=== PATIENT | male | born 1935 | race African-American/Black ===

== ENCOUNTER 2024-07-07 14:58 | Inpatient (IN) | payer MEDICARE, OTHER ==
[~2024-07-07] VITALS: Ht 330.2 cm; Wt 62.6 kg
[2024-07-07 15:06] VITALS: O2SAT 100
[2024-07-07 17:33] LABS: HEMATOCRIT. 33.5 % (42.0-52.0); HEMOGLOBIN. 10.2 g/dL (14.0-18.0); MEAN CORPUSCULAR HEMOGLOBIN 23.7 pg (28.0-32.0); MEAN CORPUSCULAR HGB CONC 30.3 g/dL (31.0-37.0); MEAN PLATELET VOLUME 8.6 fl (7.4-10.4); PLATELET 96 x1000/uL (130-400); RED CELL DISTRIBUTION WIDTH 19.4 % (11.6-14.6); WHITE BLOOD COUNT 27.3 x1000/uL (4.5-11.0)
[2024-07-07 17:40] LABS: DIFFERENTIAL COMMENT 1
[2024-07-07 18:30] LABS: ANISOCYTOSIS 1+; HYPOCHROMASIA 1+; MICROCYTOSIS 1+; PLATELET ESTIMATE DECREASED
[2024-07-07] MEDS: PIPERACILLIN/TAZO 3.375G/50ML 50 ML IV ONE (18:45)
[2024-07-07] MEDS: SODIUM CHLORIDE 0.9% 1000ML BAG (SEPSIS BOLUS) IV ONE (18:45)
[2024-07-07] MEDS: VANCOMYCIN 1G PREMIX 200 ML IV ONE (19:30)
[2024-07-07 19:33] LABS: CARBON DIOXIDE 23 mEq/L (21-32)
[2024-07-07 19:34] LABS: CALCIUM 8.2 mg/dL (8.7-10.4)
[2024-07-07 19:35] LABS: CHLORIDE 102 mEq/L (98-107); POTASSIUM 4.6 mEq/L (3.5-5.1); SODIUM 134 mEq/L (136-145)
[2024-07-07 19:38] LABS: CREATININE 0.9 mg/dL (0.6-1.3); GLUCOSE 179 mg/dL (70-105); UREA NITROGEN BLOOD 39 mg/dL (9-23)
[2024-07-07 19:39] LABS: TROPONIN I HIGH SENSITIVITY 11 ng/L (3.0-53)
[2024-07-07 19:40] LABS: ALANINE AMINOTRANSFERASE 158 IU/L (10-49); ALBUMIN 2.8 g/dL (3.2-4.8); ASPARTATE AMINOTRANSFERASE 310 IU/L (<34)
[2024-07-07 19:41] LABS: BILIRUBIN TOTAL 1.3 mg/dL (0.1-1.0); PROTEIN TOTAL 6.2 g/dL (6.0-8.3)
[2024-07-07 19:42] LABS: INR 1.5; PROTHROMBIN TIME 16.7 sec (9.6-11.0)
[2024-07-07 19:45] LABS: LACTIC ACID 4.5 mmol/L (0.4-2.0)
[2024-07-07] MEDS ORDERED: IPRATROPIUM/ALBUTEROL 0.5-3(2.5)MG/3ML NEB HHN PRN (21:30)
[2024-07-07] MEDS ORDERED: ACETAMINOPHEN 325MG TABLET PO PRN (21:30)
[2024-07-07] MEDS ORDERED: ENOXAPARIN 40MG/0.4ML SYR SUBCUT SCH (21:30)
[2024-07-07] MEDS ORDERED: ONDANSETRON HCL 4MG/2ML INJ IV PRN (21:30)
[2024-07-07] MEDS: DEXT 5%/0.45% NACL KCL 20MEQ/L 1,000 ML IV SCH (22:00)
[2024-07-07] MEDS: PANTOPRAZOLE SODIUM 40 MG/VIAL IV SCH (22:00)
[2024-07-07] MEDS: MVI, ADULT NO.1 10 ML, FOLIC ACID 1 MG, THIAMINE HCL 100 MG in SODIUM CHLORIDE 0.9% 1,0... IV ONE (22:00)
[2024-07-08] MEDS: ENOXAPARIN 30MG/0.3ML SYR SUBCUT SCH (00:27)
[2024-07-08] MEDS: PIPERACILLIN/TAZO 3.375G/50ML 50 ML IV SCH (06:28)
[2024-07-08 09:48] LABS: HEMATOCRIT. 33.6 % (42.0-52.0); HEMOGLOBIN. 9.9 g/dL (14.0-18.0); MEAN CORPUSCULAR HEMOGLOBIN 23.9 pg (28.0-32.0); MEAN CORPUSCULAR HGB CONC 29.5 g/dL (31.0-37.0); MEAN CORPUSCULAR VOLUME 81.1 fL (80.0-94.0); MEAN PLATELET VOLUME 8.9 fl (7.4-10.4); PLATELET 82 x1000/uL (130-400); RED BLOOD CELL COUNT 4.14 mill/uL (4.7-6.1); RED CELL DISTRIBUTION WIDTH 19.9 % (11.6-14.6); WHITE BLOOD COUNT 29.1 x1000/uL (4.5-11.0)
[2024-07-08 09:49] LABS: DIFFERENTIAL COMMENT 1
[2024-07-08 10:34] LABS: LACTIC ACID 4.1 mmol/L (0.4-2.0)
[2024-07-08] MEDS ORDERED: TOPUD PO (11:09)
[2024-07-08] MEDS ORDERED: INSU100I28 SQ (11:22)
[2024-07-08] MEDS ORDERED: DAKIHS MC (11:22)
[2024-07-08] MEDS ORDERED: ATOR10TA MT (11:29)
[2024-07-08] MEDS ORDERED: CLON0.1T PO ×2 (11:29)
[2024-07-08] MEDS ORDERED: ONDA-239 PO (11:29)
[2024-07-08] MEDS ORDERED: COLL30OI TP (11:29)
[2024-07-08] MEDS ORDERED: MELO-104 MT (11:29)
[2024-07-08] MEDS ORDERED: DULO30CA2 MT (11:29)
[2024-07-08 11:43] VITALS: BP 163/85; PULSE 61; RESP 17; TEMP 35.78064; O2SAT 95
[2024-07-08 12:00] VITALS: BP 159/82; PULSE 91; RESP 18; TEMP 36.14
[2024-07-08] MEDS ORDERED: VANCOMYCIN 1G PREMIX 200 ML IV SCH (12:00)
[2024-07-08 13:59] LABS: TROPONIN I HIGH SENSITIVITY 8 ng/L (3.0-53)
[2024-07-08] MEDS ORDERED: AMMO140C2 TP (14:20)
[2024-07-08] MEDS ORDERED: DEXTL MT (14:20)
[2024-07-08 14:37] LABS: CARBON DIOXIDE 23 mEq/L (21-32); CHLORIDE 106 mEq/L (98-107); POTASSIUM 5.2 mEq/L (3.5-5.1); SODIUM 135 mEq/L (136-145)
[2024-07-08 14:38] LABS: CALCIUM 7.5 mg/dL (8.7-10.4)
[2024-07-08 14:42] LABS: CREATININE 0.8 mg/dL (0.6-1.3)
[2024-07-08 14:43] LABS: GLUCOSE 124 mg/dL (70-105); UREA NITROGEN BLOOD 43 mg/dL (9-23)
[2024-07-08 14:44] LABS: ALANINE AMINOTRANSFERASE 104 IU/L (10-49)
[2024-07-08 14:45] LABS: ALBUMIN 2.4 g/dL (3.2-4.8); ASPARTATE AMINOTRANSFERASE 106 IU/L (<34); BILIRUBIN TOTAL 1.2 mg/dL (0.1-1.0); PROTEIN TOTAL 5.1 g/dL (6.0-8.3)
[2024-07-08] MEDS: DEXT 5%/0.45% NACL 1000ML 1,000 ML IV SCH (15:44)
[2024-07-08 15:50] VITALS: BP 166/80; PULSE 89; RESP 19; TEMP 36.00288; O2SAT 96
[2024-07-08 15:59] LABS: ANISOCYTOSIS 2+; PLATELET ESTIMATE DECREASED
[2024-07-08] MEDS: BLOOD SUGAR DIAGNOSTIC STRIP TEST SCH (16:20)
[2024-07-08] MEDS: INSULIN LISPRO 100 UNITS/ML SUBCUT SCH (16:20)
[2024-07-08] MEDS: VANCOMYCIN 1G PREMIX 200 ML IV SCH (16:43)
[2024-07-08 16:45] VITALS: BP 155/88
[2024-07-08] MEDS ORDERED: CLONIDINE 0.1MG TABLET PO PRN (16:45)
[2024-07-08] MEDS: OLANZAPINE 10MG TABLET PO SCH (17:54)
[2024-07-08 20:00] VITALS: BP 108/50; PULSE 87; RESP 18; TEMP 36.3918; O2SAT 99
[2024-07-09 04:00] VITALS: BP 103/63; PULSE 68; RESP 18; TEMP 36.89184; O2SAT 98
[2024-07-09] MEDS: DEXTROSE 50% WATER 50ML SYRINGE IV PRN (05:52)
[2024-07-09 08:00] VITALS: BP 105/53; PULSE 81; RESP 20; TEMP 36.114; O2SAT 95
[2024-07-09] MEDS: SODIUM HYPOCHLORITE SOLUTION (0.5%)FULL STRENGTH TOP SCH (09:29)
[2024-07-09 12:00] VITALS: BP 148/82; PULSE 91; RESP 18; TEMP 36.114; O2SAT 95
[2024-07-09 13:19] LABS: HEMATOCRIT. 30.4 % (42.0-52.0); HEMOGLOBIN. 9.2 g/dL (14.0-18.0); MEAN CORPUSCULAR HEMOGLOBIN 23.2 pg (28.0-32.0); MEAN CORPUSCULAR HGB CONC 30.3 g/dL (31.0-37.0); MEAN CORPUSCULAR VOLUME 76.6 fL (80.0-94.0); MEAN PLATELET VOLUME 9.4 fl (7.4-10.4); PLATELET 62 x1000/uL (130-400); RED BLOOD CELL COUNT 3.97 mill/uL (4.7-6.1); RED CELL DISTRIBUTION WIDTH 19.5 % (11.6-14.6); WHITE BLOOD COUNT 28.7 x1000/uL (4.5-11.0)
[2024-07-09 13:30] LABS: CHLORIDE 105 mEq/L (98-107); POTASSIUM 4.6 mEq/L (3.5-5.1); SODIUM 136 mEq/L (136-145)
[2024-07-09 13:31] LABS: CARBON DIOXIDE 23 mEq/L (21-32); DIFFERENTIAL COMMENT 1
[2024-07-09 13:36] LABS: CREATININE 0.9 mg/dL (0.6-1.3)
[2024-07-09 13:37] LABS: GLUCOSE 171 mg/dL (70-105); UREA NITROGEN BLOOD 35 mg/dL (9-23)
[2024-07-09 14:05] LABS: HEPATITIS B SURFACE ANTIGEN NEGATIVE (Negative)
[2024-07-09 14:09] LABS: ANISOCYTOSIS 1+; MICROCYTOSIS 2+; PLATELET ESTIMATE MARKEDLY DECREASED
[2024-07-09 14:25] LABS: HEPATITIS A AB IGM NEGATIVE (Negative)
[2024-07-09 14:26] LABS: HEPATITIS B CORE AB IGM NEGATIVE (Negative); HEPATITIS C AB NON REACTIVE (Neg) (Negative)
[2024-07-09 16:00] VITALS: BP 150/79; PULSE 77; RESP 18; TEMP 36.16956; O2SAT 95
[2024-07-09 20:00] VITALS: BP 100/65; PULSE 78; RESP 19; TEMP 36.22512; O2SAT 97
[2024-07-10 00:30] VITALS: BP 109/68; PULSE 80; RESP 17; TEMP 36.28068; O2SAT 94
[2024-07-10 04:00] VITALS: BP 100/57; PULSE 75; RESP 17; TEMP 36.44736; O2SAT 95
[2024-07-10 06:51] LABS: HEMATOCRIT. 28.6 % (42.0-52.0); HEMOGLOBIN. 8.9 g/dL (14.0-18.0); MEAN CORPUSCULAR HEMOGLOBIN 23.5 pg (28.0-32.0); MEAN CORPUSCULAR HGB CONC 31.1 g/dL (31.0-37.0); MEAN CORPUSCULAR VOLUME 75.4 fL (80.0-94.0); MEAN PLATELET VOLUME 9.4 fl (7.4-10.4); RED CELL DISTRIBUTION WIDTH 19.5 % (11.6-14.6); WHITE BLOOD COUNT 24.4 x1000/uL (4.5-11.0)
[2024-07-10] MEDS: MEROPENEM 1G/100ML 100 ML IV SCH ×2 (06:52→16:06)
[2024-07-10 07:00] LABS: CHLORIDE 105 mEq/L (98-107); POTASSIUM 4.3 mEq/L (3.5-5.1); SODIUM 135 mEq/L (136-145)
[2024-07-10 07:01] LABS: CALCIUM 7.8 mg/dL (8.7-10.4); CARBON DIOXIDE 22 mEq/L (21-32)
[2024-07-10 07:07] LABS: GLUCOSE 276 mg/dL (70-105); UREA NITROGEN BLOOD 35 mg/dL (9-23)
[2024-07-10 07:08] LABS: CREATINE KINASE 53 IU/L (46-171)
[2024-07-10] MEDS ORDERED: LIDOCAINE HCL 1% 10 MG/ML 10ML VIAL ONE (07:24)
[2024-07-10 08:00] VITALS: BP 125/110; PULSE 89; RESP 17; TEMP 36.55848; O2SAT 96
[2024-07-10 08:26] LABS: DIFFERENTIAL COMMENT 1; PLATELET 45 x1000/uL (130-400)
[2024-07-10 08:29] LABS: ANISOCYTOSIS 1+; MICROCYTOSIS 2+; PLATELET ESTIMATE MARKEDLY DECREASED
[2024-07-10 12:00] VITALS: BP 108/67; PULSE 84; RESP 21; TEMP 37.16964; O2SAT 95
[2024-07-10 16:00] VITALS: BP 93/52; PULSE 62; RESP 17; TEMP 36.00288; O2SAT 98
[2024-07-10 20:00] VITALS: BP 93/51; PULSE 80; RESP 18; TEMP 36.3918; O2SAT 98
[2024-07-11] VITALS: BP 111/63; PULSE 69; RESP 18; TEMP 36.3918; O2SAT 100
[2024-07-11 04:00] VITALS: BP 108/61; PULSE 86; RESP 18; TEMP 36.16956; O2SAT 100
[2024-07-11 06:05] LABS: CHLORIDE 106 mEq/L (98-107); POTASSIUM 4.6 mEq/L (3.5-5.1); SODIUM 137 mEq/L (136-145)
[2024-07-11 06:06] LABS: CARBON DIOXIDE 24 mEq/L (21-32)
[2024-07-11 06:11] LABS: GLUCOSE 132 mg/dL (70-105); UREA NITROGEN BLOOD 38 mg/dL (9-23)
[2024-07-11 06:13] LABS: ALANINE AMINOTRANSFERASE 59 IU/L (10-49); ALBUMIN 2.4 g/dL (3.2-4.8); ASPARTATE AMINOTRANSFERASE 52 IU/L (<34); BILIRUBIN TOTAL 0.7 mg/dL (0.1-1.0); PROTEIN TOTAL 5.2 g/dL (6.0-8.3)
[2024-07-11 07:01] LABS: HEMATOCRIT. 28.4 % (42.0-52.0); HEMOGLOBIN. 8.9 g/dL (14.0-18.0); MEAN CORPUSCULAR HEMOGLOBIN 23.4 pg (28.0-32.0); MEAN CORPUSCULAR HGB CONC 31.5 g/dL (31.0-37.0); MEAN CORPUSCULAR VOLUME 74.4 fL (80.0-94.0); MEAN PLATELET VOLUME 9.6 fl (7.4-10.4); RED BLOOD CELL COUNT 3.81 mill/uL (4.7-6.1); RED CELL DISTRIBUTION WIDTH 19.1 % (11.6-14.6); WHITE BLOOD COUNT 15.3 x1000/uL (4.5-11.0)
[2024-07-11] MEDS ORDERED: LIDOCAINE HCL 1% 10 MG/ML 10ML VIAL ONE (07:20)
[2024-07-11 07:22] LABS: DIFFERENTIAL COMMENT 1
[2024-07-11 07:24] LABS: PLATELET 34 x1000/uL (130-400)
[2024-07-11 08:34] VITALS: BP 89/54; PULSE 72; RESP 18; TEMP 36.114; O2SAT 98
[2024-07-11 12:16] VITALS: BP 107/65; PULSE 85; RESP 18; TEMP 36.6696; O2SAT 96
[2024-07-11 13:31] LABS: ANISOCYTOSIS 1+; MICROCYTOSIS 1+; PLATELET ESTIMATE MARKEDLY DECREASED; TARGET CELLS 1+
[2024-07-11 16:35] VITALS: BP 99/45; PULSE 78; RESP 18; TEMP 37.16964; O2SAT 95
[2024-07-11 20:00] VITALS: BP 112/76; PULSE 75; RESP 18; TEMP 36.50292; O2SAT 95
[2024-07-12] VITALS: BP 113/62; PULSE 87; RESP 18; TEMP 36.50292; O2SAT 99
[2024-07-12 04:00] VITALS: BP 145/87; PULSE 85; RESP 18; TEMP 36.3918; O2SAT 100
[2024-07-12 08:33] VITALS: BP 103/61; PULSE 97; RESP 18; TEMP 36.05844; O2SAT 96
[2024-07-12 12:35] VITALS: BP 110/60; PULSE 104; RESP 17; TEMP 37.00296; O2SAT 98
[2024-07-12 16:38] VITALS: BP 107/48; PULSE 70; RESP 17; TEMP 36.61404; O2SAT 70; O2SAT 99
[2024-07-12 20:00] VITALS: BP 101/54; PULSE 60; RESP 19; TEMP 36.50292; O2SAT 97
[2024-07-13 04:00] VITALS: BP 99/50; PULSE 69; RESP 18; TEMP 36.3918; O2SAT 99
[2024-07-13 08:37] VITALS: BP 94/56; PULSE 45; RESP 17; TEMP 37.00296; O2SAT 93
[2024-07-13 11:58] VITALS: PULSE 67; RESP 18; TEMP 36.61404; O2SAT 96
[2024-07-13 16:00] VITALS: BP 95/53; PULSE 82; RESP 18; TEMP 36.00288; O2SAT 97
[2024-07-13 20:00] VITALS: BP 106/60; PULSE 72; RESP 20; TEMP 36.28068; O2SAT 97
[2024-07-14] VITALS: BP 108/55; PULSE 89; RESP 19; TEMP 36.28068; O2SAT 99
[2024-07-14 04:00] VITALS: BP 108/60; PULSE 84; RESP 20; TEMP 36.16956; O2SAT 100
[2024-07-14 08:00] VITALS: BP 101/56; PULSE 74; RESP 19; TEMP 35.61396; O2SAT 100
[2024-07-14 12:00] VITALS: BP 103/53; PULSE 72; RESP 21; TEMP 35.78064; O2SAT 100
[2024-07-14 16:00] VITALS: BP 107/79; PULSE 81; RESP 16; TEMP 36.00288; O2SAT 99
[2024-07-14 20:00] VITALS: BP 126/87; PULSE 70; RESP 19; TEMP 36.28068; O2SAT 95
[2024-07-15] VITALS: BP 110/80; PULSE 68; RESP 20; TEMP 36.44736; O2SAT 95
[2024-07-15 04:00] VITALS: BP 164/81; PULSE 100; RESP 18; TEMP 36.33624; O2SAT 95
[2024-07-15 08:12] VITALS: BP 126/68; PULSE 87; RESP 20; TEMP 36.6696; O2SAT 100
[2024-07-15 12:00] VITALS: BP 125/64; PULSE 89; RESP 20; TEMP 36.05844; O2SAT 99
[2024-07-15 16:00] VITALS: BP 106/56; PULSE 92; RESP 18; TEMP 36.6696; O2SAT 100
[2024-07-15 20:00] VITALS: BP 118/63; PULSE 92; RESP 18; TEMP 36.22512; O2SAT 98
[2024-07-16] VITALS: BP 101/55; PULSE 92; RESP 18; TEMP 36.78072; O2SAT 97
[2024-07-16 04:00] VITALS: BP 110/70; PULSE 101; RESP 18; TEMP 36.6696; O2SAT 98
[2024-07-16 08:00] VITALS: BP 94/50; PULSE 89; RESP 18; TEMP 36.114; O2SAT 1
[2024-07-16 12:00] VITALS: BP 101/58; PULSE 78; RESP 20; TEMP 36.114; O2SAT 98
[2024-07-16 16:00] VITALS: BP 96/56; PULSE 80; RESP 18; TEMP 35.5584; O2SAT 99
[2024-07-16 20:00] VITALS: BP 105/56; PULSE 55; RESP 19; TEMP 35.78064; O2SAT 94
[2024-07-17] VITALS: BP 140/111; PULSE 60; RESP 19; TEMP 36.44736; O2SAT 95
[2024-07-17 04:00] VITALS: BP 102/66; PULSE 55; RESP 18; TEMP 36.50292; O2SAT 97
[2024-07-17 08:00] VITALS: BP 102/57; PULSE 66; RESP 19; TEMP 36.00288; O2SAT 98
[2024-07-17 12:00] VITALS: BP 111/63; PULSE 70; RESP 18; TEMP 36.33624; O2SAT 96
[2024-07-17 16:00] VITALS: BP 162/129; PULSE 76; RESP 20; TEMP 36.78072; O2SAT 100
[2024-07-17 20:00] VITALS: BP 101/62; PULSE 81; RESP 18; TEMP 36.61404; O2SAT 97
[2024-07-18] VITALS: BP 99/41; PULSE 87; RESP 18; TEMP 36.72516; O2SAT 99
[2024-07-18 04:00] VITALS: BP 144/99; PULSE 77; RESP 18; TEMP 36.55848; O2SAT 97
[2024-07-18 08:00] VITALS: BP 98/56; PULSE 60; RESP 18; TEMP 35.5584; O2SAT 99
[2024-07-18 12:00] VITALS: BP 77/42; PULSE 57; RESP 20; TEMP 35.66952; O2SAT 91
[2024-07-18 16:00] VITALS: BP 88/45; PULSE 74; RESP 19; TEMP 35.78064; O2SAT 100
[2024-07-18 20:00] VITALS: BP 110/70; PULSE 70; RESP 20; TEMP 36.3918
[2024-07-19] VITALS: BP 95/65; PULSE 70; RESP 18; TEMP 36.50292
[2024-07-19 04:00] VITALS: BP 100/64; PULSE 65; RESP 19; TEMP 35.8362
[2024-07-19 08:00] VITALS: BP 109/50; PULSE 82; RESP 20; TEMP 36.6696; O2SAT 99
[2024-07-19] MEDS: CLONIDINE 0.1MG TABLET PO PRN (08:09)
[2024-07-19 12:00] VITALS: BP 88/41; PULSE 61; RESP 18; TEMP 36.6696; O2SAT 100
[2024-07-19 16:00] VITALS: BP 91/53; PULSE 52; RESP 18; TEMP 35.5584; O2SAT 99
[2024-07-19 20:00] VITALS: BP 140/62; PULSE 100; RESP 20; TEMP 37.11408; O2SAT 95
[2024-07-19] MEDS: DEXT 5%/0.45% NACL 500ML 500 ML IV ONE (22:45)
[2024-07-20] VITALS: BP 104/63; PULSE 69; RESP 19; TEMP 36.114; O2SAT 99
[2024-07-20 04:00] VITALS: BP 100/71; PULSE 91; RESP 17; TEMP 36.55848; O2SAT 95
[2024-07-20 08:00] VITALS: BP 104/50; PULSE 60; RESP 20; TEMP 36.114; O2SAT 97
[2024-07-20 12:00] VITALS: BP 95/60; PULSE 55; RESP 20; TEMP 36.16956; O2SAT 97
[2024-07-20 16:00] VITALS: BP 90/50; PULSE 60; RESP 18; TEMP 36.16956; O2SAT 97
[2024-07-20 20:00] VITALS: BP 95/60; PULSE 61; RESP 14; TEMP 36.16956; O2SAT 98
[2024-07-21] VITALS: BP 89/53; PULSE 60; RESP 18; TEMP 36.114; O2SAT 96
[2024-07-21 04:00] VITALS: BP 91/64; PULSE 58; RESP 16; TEMP 36.05844; O2SAT 99
[2024-07-21 08:00] VITALS: BP 76/47; PULSE 53; RESP 22; O2SAT 98
[2024-07-21 12:00] VITALS: BP 69/46
[2024-07-21 16:00] VITALS: BP 83/66; PULSE 51; RESP 20; O2SAT 100
[2024-07-21 20:00] VITALS: BP 149/101; PULSE 92; RESP 17; O2SAT 100
[2024-07-22] VITALS: BP 88/47; PULSE 49; RESP 20; O2SAT 99
[2024-07-22 04:00] VITALS: BP 62/39; PULSE 49; RESP 20; O2SAT 99
[2024-07-22 08:00] VITALS: BP 65/35; PULSE 48; RESP 15; TEMP 36.44736; O2SAT 99
[2024-07-22 12:00] VITALS: BP 65/34; PULSE 42; RESP 14; TEMP 35.61396; O2SAT 99
[2024-07-22 16:00] VITALS: BP 57/36; PULSE 46; RESP 14; TEMP 36.55848; O2SAT 100
[2024-07-22 20:00] VITALS: BP 51/31; PULSE 36; RESP 14; TEMP 33.00264; O2SAT 93
[2024-07-23] VITALS: BP 51/27; PULSE 40; RESP 12; TEMP 33.00264; O2SAT 97
== END 2024-07-23 03:29 | DRG 871 ==
LOC: ER 14:58 → 7WST 21:12 → EDBEDREQ 21:16 → EDBEDREQTM 21:16 → UNDODISIN 07-12 01:15 → 6WST 07-13 12:47
PROVIDERS: ADMIT Internal Medicine Pulmonary Disease; ATTEND Internal Medicine Pulmonary Disease
PROC: 02HV33Z Insertion of Infusion Device into Superior Vena Cava, Percutaneous Approach (ICD-10-PCS; principal; 2024-07-11)
PROC: B548ZZA Ultrasonography of Superior Vena Cava, Guidance (ICD-10-PCS; 2024-07-11)
PROC: B5181ZA Fluoroscopy of Superior Vena Cava using Low Osmolar Contrast, Guidance (ICD-10-PCS; 2024-07-11)
DX: A41.9 Sepsis, unspecified organism (principal); G93.41 Metabolic encephalopathy; L89.623 Pressure ulcer of left heel, stage 3; L89.613 Pressure ulcer of right heel, stage 3; E11.52 Type 2 diabetes mellitus with diabetic peripheral angiopathy with gangrene; E87.20 Acidosis, unspecified; N17.9 Acute kidney failure, unspecified; M46.28 Osteomyelitis of vertebra, sacral and sacrococcygeal region; N49.3 Fournier gangrene; D69.6 Thrombocytopenia, unspecified; F03.90 Unspecified dementia, unspecified severity, without behavioral disturbance, psychotic disturbance, mood disturbance, and anxiety; N49.2 Inflammatory disorders of scrotum; Z66 Do not resuscitate; K74.60 Unspecified cirrhosis of liver; Z51.5 Encounter for palliative care; E11.69 Type 2 diabetes mellitus with other specified complication; D64.9 Anemia, unspecified; E11.22 Type 2 diabetes mellitus with diabetic chronic kidney disease; L89.109 Pressure ulcer of unspecified part of back, unspecified stage; L89.159 Pressure ulcer of sacral region, unspecified stage; E11.649 Type 2 diabetes mellitus with hypoglycemia without coma; N18.9 Chronic kidney disease, unspecified; I83.009 Varicose veins of unspecified lower extremity with ulcer of unspecified site; F41.9 Anxiety disorder, unspecified; R79.89 Other specified abnormal findings of blood chemistry; R74.01 Elevation of levels of liver transaminase levels; I12.9 Hypertensive chronic kidney disease with stage 1 through stage 4 chronic kidney disease, or unspecified chronic kidney disease; Z79.899 Other long term (current) drug therapy
CPT/HCPCS: 36415; 36573; 71045; 74176; 76700; 80048; 80053; 80202; 82550; 82962; 83036; 83605; 84145; 84484; 85025; 85651; 86705; 86709; 87340; 92610; 93005; 93923; 93970; 97161; 99291; C1725; J1650; J1815; J2185; J2470; J2543; J3370; J3411; J3490; J7030